=== PATIENT | male | born 1970 | race Caucasian/White ===

== ENCOUNTER 2022-03-25 15:46 | Outpatient (CLI) | payer OTHER, SELFPAY ==
[2022-03-25 17:10] LABS: Chloride* 100 mmol/L (96-114); Creatinine Urine 100.5 mg/dL
[2022-03-25 17:11] LABS: Albumin* 4.9 g/dL (3.3-5.0); Potassium* 4.2 mmol/L (3.6-5.1); Sodium* 136 mmol/L (135-149)
[2022-03-25 17:13] LABS: Aspartate Amino Transferase* 42 U/L (12-35); Bilirubin Total* 0.6 mg/dL (0.1-1.5); Carbon Dioxide* 28 mmol/L (20-32); Creatinine* 0.6 mg/dL (0.5-1.5); Estimated Glomerular Filt Rate 118 ml/min; Microalbumin Creatinine Ratio 0 mg/g (0-30); Microalbumin Urine 1 mg/dL; Total Protein* 7.9 g/dL (6.0-8.3)
[2022-03-25 17:14] LABS: Alanine Aminotransferase* 55 U/L (4-50); Blood Urea Nitrogen* 15 mg/dL (5-24); Calcium* 9.8 mg/dL (8.4-10.6); Glucose* 214 mg/dL (60-115)
[2022-03-25 17:31] LABS: Alkaline Phosphatase* 152 U/L (40-150)
== END 2022-03-25 15:47 | disposition home or self-care (01) ==
PROVIDERS: PCP Internal Medicine; Visit Provider Internal Medicine
DX: Z00.00 Encounter for general adult medical examination without abnormal findings (principal); E11.9 Type 2 diabetes mellitus without complications; R63.4 Abnormal weight loss
CPT/HCPCS: 80053; 82043; 82570

== ENCOUNTER 2022-10-26 14:01 | Outpatient (CLI) | payer OTHER, SELFPAY | END 2022-10-26 14:02 | disposition home or self-care (01) | LOC: NFLDREF 14:02 | PROVIDERS: PCP Internal Medicine; Visit Provider Internal Medicine | DX: R53.83 Other fatigue (principal); E11.9 Type 2 diabetes mellitus without complications | CPT/HCPCS: 82043; 82570 ==

== ENCOUNTER 2023-05-04 15:52 | Outpatient (CLI) | payer OTHER, SELFPAY ==
--- OUTSIDE RECORDS SUMMARY | 2023-05-04 15:54 | XMS_ITS | Clinical Summary ---
Author Name Unknown Organization [employer] [facility] Address [place], [place] [address] Care Team Providers Care Airplane Pilot Name Role Phone Pcp, No Primary Care Provider Unavailabl e Pcp, No Unavailable Unavailable Allergies No known active allergies Medications Medication Sig Dispensed Refills Start Date End Date Status metFORMIN (GLUCOPHAGE) 1,000 mg tablet Take 1 tablet by mouth 2 times daily with meals. 0 06/19/2015 Active Family History Relation Name Status Comments Father Alive Mother Alive Social History Tobacco Use Types Packs/Day Years Used Date Smoking Tobacco: Never Smokeless Tobacco: Never Tobacco Cessation:Counseling Given: No Alcohol Use Standard Drinks/Week Comments Yes 1 (1 standard drink = 0.6 oz pur e alcohol) Sex and Gender Information Value Date Recorded Sex Assigned at Not on file Gender Identity Not on file Sexual Orientation Not on file Obstetrics History Last Filed Vital Signs Vital Sign Reading Time Taken Comments Blood Pressure 120/74 08/29/2015 10:29 AM CDT Pulse 80 08/29/2015 10:29 AM CDT Temperature - - Respiratory Rate 20 08/29/2015 10:2 9 AM CDT Oxygen Saturation - - Inhaled Oxygen Concentration - - Weight 92.9 kg (204 lb 14.4 oz) 016 10:29 AM CDT Height 179.1 cm (5' 10.5) 08/29/2015 1 0:29 AM CDT Body Mass Index 28.98 08/29/2015 10:29 AM CDT Plan of Treatment Health Maintenance Due Date Last Done Comments COVID-19 vaccine series (#1) 03/13/1973 Tdap 09/11/1983 HIV for age 15-65 09/11/1987 Hepatitis C screening for ag e 18-79 1990 Tetanus booster 1992 BMI (ht and wt on same day) for age 18+ 08/28/2016 08/29/2015, 06/19/2015 Depression screening for age 12+ 08/28/2016 08/29/2015, 08/29/2015 Colonoscopy through age 75 2017 Lipids for age 45-75 2017 Zoster (shingles) series for age 50+ (1 of 2) 2022 Influenza for age 50-64 12/25/2022 Pneumococcal series for age 6-64 Aged Out No longer eligible b ased on patient's age to complete this topic Care Teams Airplane Pilot Relationship Specialty Start Date End Date Pcp, No . PCP - General 06/19/15 Pcp, No . 06/19/15
== END 2023-05-04 15:53 | disposition home or self-care (01) ==
LOC: NFLDREF 15:53
PROVIDERS: PCP Internal Medicine; Visit Provider Internal Medicine
DX: Z00.00 Encounter for general adult medical examination without abnormal findings (principal); R53.83 Other fatigue; E78.5 Hyperlipidemia, unspecified; E11.9 Type 2 diabetes mellitus without complications; Z13.29 Encounter for screening for other suspected endocrine disorder
CPT/HCPCS: 80053; 80061; 82043; 82570; 84439; 84443

== ENCOUNTER 2023-06-03 12:51 | Outpatient (CLI) | payer OTHER, SELFPAY ==
--- OUTSIDE RECORDS SUMMARY | 2023-06-03 12:53 | XMS_ITS | Clinical Summary ---
Author Name Unknown Organization [facility] [place] [address] Care Team Providers Care Car Mover Name Role Phone Pcp, No Primary Care [...] age to complete this topic Care Teams Car Mover Relationship Specialty Start Date End Date Pcp, No . PCP - General 06/19/15 Pcp, No . 06/19/15
--- NOTE | 2023-06-03 13:00 | CRLHL7_ITS ---
For Patients: As a result of the Century Cures Act, medical imaging exams and procedure reports are released immediately into your electronic medical record. You may view this report before your referring provider. If you have questions, please contact your health care provider. INDICATION: Thyrotoxicosis. TECHNIQUE: 241 microcuries I-123 administered orally on June 02, 2023. Uptake and scan performed June 03, 2023. FINDINGS: Symmetric uptake within both thyroid lobes. No hot or cold thyroid lobe nodules. Normal 24 hour thyroid uptake of 25.3 percent. IMPRESSION: 1. Normal scintigraphic appearance of the thyroid gland. 2. Normal 24 hour thyroid uptake of 23.5 percent. Dictated by Toby Marks MD @ 06/03/2023 3:14:16 PM (Electronically Signed)
== END 2023-06-03 12:52 | disposition home or self-care (01) ==
LOC: NM 12:52
PROVIDERS: PCP Internal Medicine; Visit Provider Internal Medicine
DX: E05.90 Thyrotoxicosis, unspecified without thyrotoxic crisis or storm (principal)
CPT/HCPCS: 78014; A9509

== ENCOUNTER 2023-06-04 15:08 | Outpatient (CLI) | payer OTHER, SELFPAY ==
--- OUTSIDE RECORDS SUMMARY | 2023-06-07 08:17 | XMS_ITS | Clinical Summary ---
Author Name Unknown Organization [employer] [facility] Address [place], [place] [address] Care Team Providers Care Pitching Coach Name Role Phone Pcp, No Primary Care [...] age to complete this topic Care Teams Pitching Coach Relationship Specialty Start Date End Date Pcp, No . PCP - General 06/19/15 Pcp, No . 06/19/15
== END 2023-06-04 15:09 | disposition home or self-care (01) ==
LOC: NFLDREF 06-07 08:10
PROVIDERS: PCP Internal Medicine; Referring Provider Internal Medicine; Visit Provider Internal Medicine
DX: E05.90 Thyrotoxicosis, unspecified without thyrotoxic crisis or storm (principal)
CPT/HCPCS: 86376; 86800

== ENCOUNTER 2023-11-16 13:55 | Outpatient (CLI) | payer OTHER, SELFPAY ==
--- OUTSIDE RECORDS SUMMARY | 2023-11-16 14:01 | XMS_ITS | Clinical Summary ---
Author Organization [employer] [facility] & [facility] Address [place], [place] [address] Care Team Providers Care Nuclear Physics Teacher Name Role Phone Pcp, No Primary Care [...] Health Maintenance Due Date Last Done Comments Tdap 09/11/1983 HIV for age 15-65 09/11/1987 Hepatitis C screening for ag e 18-79 1990 Tetanus booster 1992 BMI (ht and wt on same day) for age 18+ 08/28/2016 08/29/2015, 06/19/2015 Depression screening for age 12+ 08/28/2016 08/29/2015, 08/29/2015 Colonoscopy through age 75 2017 Lipids for age 45-75 2017 Zoster (shingles) series for age 50+ (1 of 2) 2022 COVID-19 vaccine series ( - 2022- season) 2022 Influenza for age 50-64 12/26/2023 Pneumococcal series for age 6-64 Aged Out No longer eligible b ased on patient's age to complete this topic Care Teams Nuclear Physics Teacher Relationship Specialty Start Date End Date Pcp, No . PCP - General 06/19/15 Pcp, No . 06/19/15
== END 2023-11-16 13:56 | disposition home or self-care (01) ==
PROVIDERS: PCP Internal Medicine; Visit Provider Internal Medicine
DX: E05.90 Thyrotoxicosis, unspecified without thyrotoxic crisis or storm (principal); E78.5 Hyperlipidemia, unspecified; E11.65 Type 2 diabetes mellitus with hyperglycemia; Z79.84 Long term (current) use of oral hypoglycemic drugs; Z12.5 Encounter for screening for malignant neoplasm of prostate
CPT/HCPCS: 80053; 80061; 82043; 82570; 83520; 84439; 84443; 84481; G0103

== ENCOUNTER 2023-11-26 11:21 | Outpatient (CLI) | payer OTHER, SELFPAY ==
--- OUTSIDE RECORDS SUMMARY | 2023-11-26 11:24 | XMS_ITS | Clinical Summary ---
Author Organization [employer] [facility] Address [place], [place] [address] Care Team Providers Care Clinic Lead Name Role Phone Pcp, No Primary Care [...] age to complete this topic Care Teams Clinic Lead Relationship Specialty Start Date End Date Pcp, No . PCP - General 06/19/15 Pcp, No . 06/19/15
--- NOTE | 2023-11-26 11:45 | CRLHL7_ITS ---
For Patients: As a result of the Century Cures Act, medical imaging exams and procedure reports are released immediately into your electronic medical record. You may view this report before your referring provider. If you have questions, please contact your health care provider. INDICATION: thyrotoxicosis COMPARISON: none TECHNIQUE: Davila scale and color Doppler images were acquired of the thyroid gland. FINDINGS: The thyroid gland demonstrates normal uniform echogenicity and has a smooth outer contour. Isthmus measures 2.2 millimeters. Solid nodule left thyroid lobe measures 6 x 4 x 6 millimeters. Additional solid nodule left thyroid lobe measures 6 x 3 x 5 millimeters. Calcified nodule right thyroid lobe measures 4 x 5 x 4 millimeters. The right lobe measures 5.6 x 1.4 x 1.4 cm and the left lobe measures 5.4 x 1.4 x 1.5 cm in size. The color Doppler images demonstrate normal vascularity. There is no evidence of cervical lymphadenopathy or parathyroid mass. IMPRESSION: Bilateral subcentimeter thyroid nodules which do not require follow-up. Normal thyroid vascularity is present. No adenopathy. Dictated by Fei Lua MD @ 11/26/2023 10:23:46 PM (Electronically Signed)
== END 2023-11-26 11:22 | disposition home or self-care (01) ==
LOC: US 11:22
PROVIDERS: PCP Internal Medicine; Visit Provider Internal Medicine
DX: E05.90 Thyrotoxicosis, unspecified without thyrotoxic crisis or storm (principal)
CPT/HCPCS: 76536

== ENCOUNTER 2024-04-27 10:23 | Outpatient (CLI) | payer OTHER, SELFPAY | END 2024-04-27 10:24 | disposition home or self-care (01) | LOC: NFLDREF 10:24 | PROVIDERS: PCP Internal Medicine; Visit Provider Internal Medicine | DX: E11.9 Type 2 diabetes mellitus without complications (principal) | CPT/HCPCS: 80053; 80061; 84443 ==